=== PATIENT | male | born 1990 | race Caucasian/White ===

== ENCOUNTER 2016-09-11 07:12 | Emergency (ER) | payer OTHER ==
[~2016-09-11] VITALS: Ht 175.3 cm; Wt 69.4 kg
[2016-09-11 07:16] VITALS: BP 134/88
[2016-09-11] MEDS ORDERED: MULT1TAB10 PO (07:20)
[2016-09-11] MEDS ORDERED: CLAR1TAB2 PO (07:48)
[2016-09-11] MEDS ORDERED: AFRI0.056 (07:48)
[2016-09-11] MEDS ORDERED: IBUP80TA PO (07:48)
[2016-09-11] MEDS ORDERED: AUGM875T27 PO (07:48)
[2016-09-11] MEDS ORDERED: OXYMETAZOLINE NASAL SPRAY (AFRIN) ONE (08:00)
[2016-09-11] MEDS ORDERED: LORATADINE 10 MG TAB PO ONE (08:00)
[2016-09-11] MEDS ORDERED: IBUPROFEN 800 MG TAB PO ONE (08:00)
[2016-09-11] MEDS ORDERED: AUGMENTIN 875 MG TAB PO ONE (08:00)
== END 2016-09-11 08:22 | disposition home or self-care (01) ==
LOC: M ED 07:41
DX: H66.91 Otitis media, unspecified, right ear (principal)